=== PATIENT | female | born 1990 | race Caucasian/White ===

== ENCOUNTER → 2017-02-26 10:45 | Emergency (ER) | payer OTHER ==
[2017-02-26 10:50] VITALS: BP 146/98
== END | disposition left against medical advice (07) ==
LOC: ED 10:45
DX: F41.0 Panic disorder [episodic paroxysmal anxiety] (principal); Z53.21 Procedure and treatment not carried out due to patient leaving prior to being seen by health care provider

== ENCOUNTER 2017-08-26 13:34 | Emergency (ER) | payer OTHER ==
[2017-08-26] MEDS ORDERED: diPHENhydraMINE IV* 50 MG/ML 1 ml VIAL (BENADRYL) IV ONE (13:43)
[2017-08-26] MEDS ORDERED: Metoclopramide IV* 5 MG/ML 2 ML VIAL IV ONE (13:43)
--- NOTE | 2017-08-26 14:58 | RAD ---
HISTORY: L headache with feeling of L eye proptosis COMPARISONS: None TECHNIQUE: Multiple contiguous axial CT scans were obtained of the face without intravenous contrast, with coronal and sagittal multiplanar reformations. FINDINGS: BONES: There is no displaced fracture or dislocation. The orbital rim is intact. The zygomatic arch is intact. The pterygoid plates are intact. ORBITS: The globes are round. The optic nerves are symmetric. The extraocular musculature is normal. There is no post septal or intraconal inflammatory change. There is no retrobulbar hematoma. PARANASAL SINUSES: The paranasal sinuses are clear. BRAIN AND SOFT TISSUE: Unremarkable. OTHER: None. IMPRESSION: NO ACUTE NONCONTRAST CT PATHOLOGY OF THE FACE.
[2017-08-26 15:17] VITALS: BP 105/75
--- NOTE | 2017-08-26 15:51 | ED ---
Eren Harper Angela, scribed for Abdelrahman Aquino MD on 08/26/17 at 1351 . Headache - HPI Summary HPI Summary: This pt is a 27 y/o female presenting to [facility] c/o headache for the past 2 weeks. Pt describes her headache as diffuse pressure. Last night she noticed her left eye felt like it was bulging out and additionally feels like there is a lot of pressure behind left eye. Pt also has nausea and blurry vision. She describes blurry vision as constant in both eyes that has been progressively worsening over the past 2 weeks. Denies vomiting, sinus congestion, sore throat , runny nose, fever, neck pain or stiffness. She reports she rarely gets headaches. She has not had her vision tested recently. Pt called her PCP today and was advised to come to the ED for further work up. LMP: 1 week ago. PMHx: asthma, thyroid nodules. FHx of grandmother with fatal brain aneurysm. Allergic to Sulfa. - History Of Current Complaint Chief Complaint: EDHeadache Stated Complaint: HEADACHES Time Seen by Provider: 08/26/17 13:42 Hx Obtained From: Patient Hx Last Menstrual Period: 05/09 Onset/Duration: Started weeks ago - 2, Still Present Currently Pain Is: Current Pain Scale(0-10)= - 8, Severe Timing: Weeks - 2 Character: Pressure Location of Headache: Diffuse Aggravating Factor: Nothing Allevating Factors: Nothing Associated Signs And Symptoms: Nausea, Visual Changes - blurry vision bilateral , Other (Noted In Comments) - POS: pressure behind left eye - Allergies/Home Medications Allergies/Adverse Reactions: Allergies Allergy/AdvReac Type Severity Reaction Status Date / Time latex Allergy Rash Verified 08/26/17 13:52 Sulfa (Sulfonamide Allergy Rash Verified 08/26/17 13:52 Antibiotics) PMH/Surg Hx/FS Hx/Imm Hx Endocrine/Hematology History: Denies: Hx Diabetes, Hx Thyroid Disease, Hx Anemia Cardiovascular History: Denies: Hx Hypertension, Hx Pacemaker/ICD Respiratory History: Reports: Hx Asthma Denies: Hx Chronic Obstructive Pulmonary Disease (COPD) GI History: Denies: Hx Jaundice, Hx Ulcer History: Denies: Hx Renal Disease Sensory History: Denies: Hx Hearing Aid Psychiatric History: Reports: Hx Depression - zoloft x 2 months Denies: Hx Panic Disorder - Surgical History Surgery Procedure, Year, and Place: Appendectomy, Laparoscopy 2009 - Immunization History Date of Tetanus Vaccine: Unk Date of Influenza Vaccine: Fall 2014 Infectious Disease History: No Infectious Disease History: Denies: Hx Hepatitis, Hx Human Immunodeficiency Virus (HIV), History Other Infectious Disease, Traveled Outside the [place] in Last 30 Days - Family History Family History: Grandmother with fatal brain aneurysm - Social History Alcohol Use: None Substance Use Type: Reports: None Smoking Status (MU): Never Smoked Tobacco Review of Systems Negative: Fever Eyes: Other - pressure behind left eye Positive: Blurred Vision Negative: Sore Throat, Nasal Discharge, Other - sinus congestion, runny nose Positive: Nausea. Negative: Vomiting Negative: Other - neck pain or stiffness Positive: Headache All Other Systems Reviewed And Are Negative: Yes Physical Exam - Summary Physical Exam Summary: Appearance: Well appearing, no pain distress Skin: warm, dry, reflects adequate perfusion Head/face: normal Eyes: EOMI, KHANH. Globes are soft. ENT: No nasal discharge. Temporal arteries are nontender. Neck: supple, non-tender. No meningismus. Respiratory: CTA, breath sounds present Cardiovascular: RRR, pulses symmetrical Abdomen: non-tender, soft Bowel: present Musculoskeletal: normal, strength/ROM intact Neuro: normal, sensory motor intact, A&Ox3 Triage Information Reviewed: Yes Vital Signs On Initial Exam: Initial Vitals Temp Pulse Resp BP Pulse Ox 97.8 F 74 19 141/89 100 08/26/17 13:36 08/26/17 13:36 08/26/17 13:36 08/26/17 13:36 08/26/17 13:36 Vital Signs Reviewed: Yes Diagnostics - Vital Signs Vital Signs Temp Pulse Resp BP Pulse Ox 08/26/17 13:36 97.8 F 74 19 141/89 100 - Laboratory Lab Statement: Any lab studies that have been ordered have been reviewed, and results considered in the medical decision making process. - CT Sinuses CT CT Interpretation: No Acute Changes - IMPRESSION: No acute noncontrast CT pathology of the face. Dr. Aquino has reviewed this radiology report. CT Interpretation Completed By: Radiologist Re-Evaluation - Re-Evaluation First Eval Re-Evaluation Time: 14:27 Change: Improved Comment: Headache is getting better. Second Eval Re-Evaluation Time: 15:04 Change: Improved Comment: Headache has resolved. Headache Course/Dx - Course Course Of Treatment: Patient with headache behind the left eye with a feeling of proptosis. CT of the sinuses is negative. Vision is grossly normal. Headache was resolved after treatment here. Likely cluster headache. Follow- up with the primary care physician. - Diagnoses Differential Diagnosis/HQI/PQRI: Migraine, Sinus Headache, Tension Headache, Other - Cluster headache, Provider Diagnoses: Cluster headache Discharge - Sign-Out/Discharge Documenting (check all that apply): Discharge/Admit/Transfer - Discharge - Discharge Plan Condition: Improved Disposition: HOME Prescriptions: Promethazine TAB* [Phenergan Tab*] 25 mg PO Q6H PRN #20 tab PRN Reason: headache/nausea Patient Education Materials: Cluster Headache (ED) Referrals: Mallory Freitas NP [Primary Care Provider] - Additional Instructions: Drink plenty of fluids, caffeine may help. Benadryl and ibuprofen taken with prescribed medications may help to. Medication can make you drowsy. Do not drive if you're feeling drowsy. Return if worse, new symptoms or other concerns. Call your doctor today to schedule follow-up before the weekend. - Billing Disposition and Condition Condition: IMPROVED Disposition: Home The documentation as recorded by the Eren ley Angela accurately reflects the service I personally performed and the decisions made by me, Abdelrahman Aquino MD.
== END 2017-08-26 15:17 | disposition home or self-care (01) ==
LOC: ED 13:34
DX: G44.009 Cluster headache syndrome, unspecified, not intractable (principal); H53.8 Other visual disturbances; R11.0 Nausea
CPT/HCPCS: 70486; 96374; 96375; 99283; J1200; J2765

== ENCOUNTER 2018-03-25 09:11 | Emergency (ER) | payer OTHER ==
[2018-03-25 10:09] VITALS: BP 126/77
[2018-03-25 10:24] LABS: Influenza A Molecular POSITIVE (Negative)
--- NOTE | 2018-03-25 10:39 | UC ---
FLU HPI - HPI Summary HPI Summary: 27-year-old female presents with onset of sore throat 2 days ago and then developed fatigue, general malaise, body aches, and chills today. Symptoms associated with some nasal congestion, clear nasal drainage, and a nonproductive cough. Denies fever, ear pain, dysphagia, chest pain, shortness of breath, abdominal pain, nausea, or vomiting. - History of Current Complaint Chief Complaint: UCGeneralIllness Stated Complaint: SORE THROAT FEVER RESP ISSUE Time Seen by Provider: 03/25/18 10:00 Hx Obtained From: Patient Hx Last Menstrual Period: 03/23/18 Pain Intensity: 0 - Allergy/Home Medications Allergies/Adverse Reactions: Allergies Allergy/AdvReac Type Severity Reaction Status Date / Time latex Allergy Rash Verified 08/26/17 13:52 Sulfa (Sulfonamide Allergy Rash Verified 08/26/17 13:52 Antibiotics) PMH/Surg Hx/FS Hx/Imm Hx Previously Healthy: Yes - Denies significant PMH - Surgical History Surgical History: Yes Surgery Procedure, Year, and Place: Appendectomy, Laparoscopy 2009 - Family History Known Family History: Positive: None Family History: Grandmother with fatal brain aneurysm - Social History Occupation: Student Lives: With Family Alcohol Use: None Substance Use Type: None Smoking Status (MU): Never Smoked Tobacco - Immunization History Most Recent Influenza Vaccination: 2016 Most Recent Tetanus Shot: UTD Review of Systems All Other Systems Reviewed And Are Negative: Yes Constitutional: Positive: Fever, Chills, Fatigue ENT: Positive: Sore Throat, Nasal Discharge, Sinus Congestion. Negative: Ear Ache, Sinus Pain/Tenderness Respiratory: Positive: Cough. Negative: Shortness Of Breath Cardiovascular: Negative: Palpitations, Chest Pain Gastrointestinal: Negative: Abdominal Pain, Vomiting, Diarrhea, Nausea Genitourinary: Positive: Negative Musculoskeletal: Positive: Negative Neurological: Positive: Negative Physical Exam - Summary Physical Exam Summary: GENERAL APPEARANCE: Well developed, well nourished, alert and cooperative, and appears to be in no acute distress. EYES: Conjunctiva clear. No drainage. Vision is grossly intact. EARS: External auditory canals and tympanic membranes clear, hearing grossly intact. NOSE: Mild nasal congestion with mucosal erythema and edema. No nasal discharge. THROAT: Pharyngeal erythema. No tonsilar inflammation, swelling, exudate, or lesions. Oral cavity normal. Teeth and gingiva in good general condition. NECK: Neck supple, non-tender without lymphadenopathy. CARDIAC: Normal S1 and S2. No S3, S4 or murmurs. Rhythm is regular. There is no peripheral edema, cyanosis or pallor. Extremities are warm and well perfused. Capillary refill is less than 2 seconds. LUNGS: Clear to auscultation without rales, rhonchi, wheezing or diminished breath sounds. ABDOMEN: Positive bowel sounds. Soft, nondistended, nontender. No guarding or rebound. No masses or hepatosplenomegally. MUSKULOSKELETAL: ROM intact to all extremities. No joint erythema or tenderness. Normal muscular development. Normal gait. SKIN: Skin normal color, texture and turgor with no lesions or eruptions. Triage Information Reviewed: Yes Vital Signs: Initial Vital Signs Temp 98.8 F 03/25/18 10:02 Pulse 91 03/25/18 10:02 Resp 18 03/25/18 10:02 BP 126/77 03/25/18 10:02 Pulse Ox 99 03/25/18 10:02 Vital Signs Reviewed: Yes Diagnostics - Laboratory Diagnostic Studies Completed/Ordered: Rapid flu positive influenza A Flu Course/Dx - Course Course Of Treatment: 27-year-old female presents with onset of sore throat 2 days ago and then developed fatigue, general malaise, body aches, and chills today. Symptoms associated with some nasal congestion, clear nasal drainage, and a nonproductive cough. Denies fever, ear pain, dysphagia, chest pain, shortness of breath, abdominal pain, nausea, or vomiting. Afebrile. Vital signs stable. Exam reveals a adult female in no acute distress with mild nasal congestion, mild pharyngeal erythema without tonsillar swelling or exudate, clear bilateral breath sounds, and a nonproductive cough. Rapid influenza was positive for influenza A. Discuss starting Tamiflu with the patient since she was within the 48 hour window of time however patient is declining at this time. Recommending symptomatic treatment. She is to follow-up with her primary care provider in 7 days if symptoms persist. Anticipatory guidance warning symptoms were reviewed with the patient. - Differential Dx/Diagnosis Differential Diagnosis/HQI/PQRI: Bronchitis, Influenza, Pneumonia, Upper Respiratory Infection Provider Diagnosis: Influenza A Discharge - Sign-Out/Discharge Documenting (check all that apply): Patient Departure All imaging exams completed and their final reports reviewed: No Studies - Discharge Plan Condition: Stable Disposition: HOME Patient Education Materials: Influenza (ED) Referrals: Mallory Freitas NP [Primary Care Provider] - 7 Days Additional Instructions: Your rapid flu test performed in the clinic today was positive for influenza A. The flu does not respond to antibiotics and is limited to the treatment of symptoms. Flu typically runs its course over 7-10 days. Drink plenty of fluids to avoid dehydration especially if you are running any fever. Use a saline rinse kit such as Neti Pot or NeilMed at least twice a day to help thin secretions and promote drainage of the sinuses. Use fluticasone (Flonase) nasal spray 2 sprays each nostril once daily. Take over the counter acetaminophen (Tylenol) or ibuprofen (Advil, Motrin) according to directions as needed for pain or fever. Use salt water gargles several times a day if you have a sore throat. You may also use Chloraseptic spray or Cepacol lonzenges according to directions which contain a numbing medication and can provide some temporary relief from your sore throat. Follow up with your primary care provider in 7 dyas if symptoms persist. Seek immediate medical attention in the emergency room if you have fever greater than 100.5 F despite taking acetaminophen or ibuprofen, have chest pain , difficulty breathing, are unable to swallow, or have any worsening of symptoms. - Billing Disposition and Condition Condition: STABLE Disposition: Home - Attestation Statements Provider Attestation: Per institutional requirements, I have reviewed the chart, however, I was not consulted specifically or made aware of this patient by the midlevel provider. I did not personally evaluate, interact with , or disposition this patient.
== END 2018-03-25 10:48 | disposition home or self-care (01) ==
LOC: UCEAST 09:11
DX: J10.1 Influenza due to other identified influenza virus with other respiratory manifestations (principal); Z88.2 Allergy status to sulfonamides; Z91.040 Latex allergy status
CPT/HCPCS: 99211; G0463

== ENCOUNTER 2021-11-14 00:05 | Inpatient (IN) ==
[2021-11-14] MEDS ORDERED: Sodium Citrate/Citric Acid LIQ 15 ML UDC ONE (00:39)
[2021-11-14 00:40] LABS: ABS Eosinophils 0.1 10^3/ul (0-0.6); ABS Lymphocytes 2.3 10^3/ul (1.0-4.8); ABS Monocytes 0.6 10^3/ul (0-0.8); ABS Neutrophils 8.2 10^3/ul (1.5-7.7); Eosinophil % 0.7 %; Hematocrit 35 % (35-47); Hemoglobin 11.5 g/dL (12.0-16.0); Lymphocyte % 20.6 %; Mean Corpuscular HGB Conc 33 g/dL (31-36); Mean Corpuscular Hemoglobin 27 pg (27-31); Mean Corpuscular Volume 82 fL (80-97); Platelet Count 293 10^3/uL (150-450); Red Blood Count 4.31 10^6 /uL (3.70-4.87); Red Cell Distribution Width 15 % (10-15); White Blood Count 11.2 10^3/uL (3.5-10.8)
[2021-11-14] MEDS ORDERED: Dexamethasone IV 4 MG/ML VIAL 1 ml VIAL ONE (00:49)
[2021-11-14] MEDS ORDERED: Ondansetron 4 mg VIAL 2 MG/ML 2 ml VIAL ONE (00:49)
[2021-11-14] MEDS ORDERED: Oxytocin 10 UNITS/ML 1 ML VIAL ONE (00:49)
[2021-11-14] MEDS ORDERED: Morphine PF AMP (0.5MG/ML) 5 MG/10 ML AMP ONE (00:50)
[2021-11-14] MEDS ORDERED: Lactated Ringers 1000 ml BAG 1,000 ML IV ONE (00:56)
[2021-11-14] MEDS ORDERED: Buffered Lidocaine 1% SYRIN 1 ml INTRADERM ONE (00:56)
[2021-11-14] MEDS ORDERED: Lactated Ringers 1000 ml BAG 1,000 ML IV SCH ×2 (01:00→02:00)
[2021-11-14] MEDS ORDERED: Oxytocin in LR 20,000 MILLI.UNIT/1,000 ML BAG IV ONE (01:02)
[2021-11-14] MEDS: Oxytocin in LR 20,000 MILLI.UNIT/1,000 ML BAG IV SCH ×2 (01:05→04:16)
[2021-11-14] MEDS ORDERED: Glycerin ADULT 2.4 gm SUPP PR PRN (01:19)
[2021-11-14] MEDS ORDERED: Dibucaine 1% OINT 28.35 GM TUBE PR PRN (01:19)
[2021-11-14] MEDS ORDERED: Phenylephrine 40 mcg/mL 10mL (400mcg) SYRINGE ONE (03:41)
[2021-11-14] MEDS: Witch Hazel PAD JAR TOPICAL PRN (04:16)
[2021-11-15 06:27] LABS: ABS Eosinophils 0.2 10^3/ul (0-0.6); ABS Lymphocytes 2.6 10^3/ul (1.0-4.8); ABS Monocytes 0.6 10^3/ul (0-0.8); ABS Neutrophils 7.2 10^3/ul (1.5-7.7); Eosinophil % 1.5 %; Hematocrit 30 % (35-47); Lymphocyte % 24.7 %; Mean Corpuscular HGB Conc 33 g/dL (31-36); Mean Corpuscular Hemoglobin 28 pg (27-31); Mean Corpuscular Volume 83 fL (80-97); Mean Platelet Volume 8.1 fL (7.4-10.4); Platelet Count 242 10^3/uL (150-450); Red Blood Count 3.61 10^6 /uL (3.70-4.87); Red Cell Distribution Width 15 % (10-15); White Blood Count 10.7 10^3/uL (3.5-10.8)
[2021-11-15 08:22] VITALS: BP 113/60
[2021-11-15] MEDS: Witch Hazel PAD JAR TOPICAL PRN (11:15)
== END 2021-11-15 11:27 | disposition home or self-care (01) | DRG 560 ==
LOC: MCHOBOUT 00:05 → MCHOB 00:23
PROVIDERS: ADMIT Obstetrics & Gynecology; ATTEND Obstetrics & Gynecology